=== PATIENT | female | born 2000 | race Caucasian/White ===

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

== ENCOUNTER 2021-03-21 21:16 | Emergency (ER) | payer OTHER ==
[2021-03-21 21:24] VITALS: BP 112/76; PULSE 90; TEMP 98.9; BMI 33.6
[2021-03-21] MEDS ORDERED: ACETAMINOPHEN 500 MG TABLET (FP) PO ONE (22:50)
[2021-03-21] MEDS ORDERED: KETOROLAC TROMETHAMINE 15 MG/ML VIAL IM ONE (22:51)
[2021-03-21] MEDS ORDERED: LIDOCAINE 5% TOPICAL PATCH TP ONE (22:51)
[2021-03-21] MEDS ORDERED: CYCLOBENZAPRINE HCL 10 MG TABLET (FP) PO ONE (22:54)
[2021-03-21] MEDS ORDERED: ACETAMINOPHEN 325 MG TABLET (FP) ONE (23:11)
[2021-03-21] MEDS ORDERED: CYCLOBENZAPRINE HCL 10 MG TABLET (FP) ONE (23:11)
[2021-03-21] MEDS ORDERED: KETOROLAC TROMETHAMINE 15 MG/ML VIAL ONE (23:11)
[2021-03-21] MEDS ORDERED: LIDOCAINE 5% TOPICAL PATCH ONE (23:11)
[2021-03-22] MEDS ORDERED: LIDOCAINE PATCH REMOVAL MC ONE (11:00)
== END 2021-03-21 23:23 | disposition home or self-care (01) ==
LOC: JER 21:16
PROC: 3E0233Z Introduction of Anti-inflammatory into Muscle, Percutaneous Approach (ICD-10-PCS; principal; 2021-03-21)
DX: M54.6 Pain in thoracic spine (principal)
CPT/HCPCS: 99284-25

== ENCOUNTER 2022-12-06 20:35 | Emergency (ER) | payer OTHER ==
[2022-12-06 20:41] VITALS: BP 155/86; PULSE 95; RESP 17; TEMP 98.2; BMI 42.5
[2022-12-06] MEDS ORDERED: RABIES IMMUNE GLOBULIN 300 UNITS/1 ML VIAL IM ONE (21:42)
[2022-12-06] MEDS ORDERED: RABIES VACCINE (PCEC)/PF 2.5 UNIT/VIAL IM ONE ×2 (21:42→21:46)
[2022-12-06] MEDS ORDERED: DIPHTH,PERTUSS(ACELL),TET 0.5 ML DISP.SYRIN IM ONE ×2 (21:42→21:46)
== END 2022-12-06 22:20 | disposition home or self-care (01) ==
LOC: JERFT 20:35
PROC: 3E0234Z Introduction of Serum, Toxoid and Vaccine into Muscle, Percutaneous Approach (ICD-10-PCS; principal; 2022-12-06)
PROC: 3E0234Z Introduction of Serum, Toxoid and Vaccine into Muscle, Percutaneous Approach (ICD-10-PCS; 2022-12-06)
PROC: 3E0234Z Introduction of Serum, Toxoid and Vaccine into Muscle, Percutaneous Approach (ICD-10-PCS; 2022-12-06)
DX: S71.032A Puncture wound without foreign body, left hip, initial encounter (principal); W54.0XXA Bitten by dog, initial encounter
CPT/HCPCS: 90375; 90471; 90675; 90715; 99284-25

== ENCOUNTER 2022-12-09 18:27 | Emergency (ER) | payer OTHER ==
[2022-12-09 18:34] VITALS: BP 140/85; PULSE 94; RESP 18; TEMP 97.9; BMI 42.5
[2022-12-09] MEDS ORDERED: RABIES VACCINE (PCEC)/PF 2.5 UNIT/VIAL IM ONE ×2 (19:02→19:04)
== END 2022-12-09 19:17 | disposition home or self-care (01) ==
LOC: JER 18:27 → JERFT 18:27
PROC: 3E023GC Introduction of Other Therapeutic Substance into Muscle, Percutaneous Approach (ICD-10-PCS; principal; 2022-12-09)
DX: Z20.3 Contact with and (suspected) exposure to rabies (principal); Z23 Encounter for immunization
CPT/HCPCS: 90675; 99283-25